=== PATIENT | male | born 1945 | race Caucasian/White ===

== ENCOUNTER → 2017-02-16 | Outpatient (CLI) | payer MEDICARE, OTHER ==
[~2017-02-16] MED LIST: ACIPHEX20 MG; ACIPHEX20 MG PO; ALBUTEROL17 GM NEB; ALLERGY RELIE15.8 ML; CELEBREX; CYANOCOBALAM1000 MCG PO; CYMBALTA20 MG PO; DIOVAN; FISH OIL 1,2001 EAC4 PO; FLOVENT HFA10.6 G1 INH; FLOVENT HFA12 G1 INH; FLOVENT HFA12 GM; FLOVENT HFA12 GM INH; FOLIC ACID PO; GENSING; GLUCOPHAGE XR500 MG; GLUCOTROL PO; LODINE; LODINE PO; LORTAB 7.5-5001 TAB; LOVENOX; METFORMIN; MICROLACTIN; NEURONTIN100 MG PO; PAXIL PO; PERCOCET 51 UDTAB 5/ PO; PERCOCET7.5; PROAIR HFA8.5 GM INH; PROBENECID/COLC1 TAB PO; RED YEAST RICE; SIMVASTATIN40 MG PO; VALSARTAN-HCTZ1 EAC1 PO; ZYRTEC; ZYRTEC10 M1 PO
--- NOTE | ~2017-02-16 | US6 ---
[facility] A Service of [facility] RADIOLOGY TEXT RESULTS PATIENT: WILLIAMS SILVA LOCATION: [facility] [[email or web address] : 49 UNIT #: [id number] AGE: [address]: Prasanna Lin MD SEX: M ORDER DR: [id number] [address] [address] [id number] O MR#: [id number] Acc #: [id number] NAME: WILLIAMS SILVA : 1945 SEX: M STUDY DATE/TIME: 02/16/2017 9:40 UNIT: SGUS ROOM: STUDY DESCRIPTION: US Abdominal Limited Attending Physician: Prasanna Lin M.D. Referring Physician: Prasanna Lin M.D. Ordering Physician: Prasanna Lin M.D. Primary Care Physician: Prasanna Lin M.D. MEDICAL IMAGING REPORT This report is preliminary unless electronic signature is present. EXAM Right upper quadrant ultrasound, 02/16/2017. HISTORY Abnormally elevated liver enzymes for 5 days. FINDINGS The liver demonstrates an increase in echotexture with attenuation of the ultrasound beam characteristic of fatty infiltration. No cystic or solid mass lesions were seen in the liver. The intra and extrahepatic bile ducts are not dilated. The gallbladder is normal with no evidence of cholelithiasis, wall thickening, or pericholecystic fluid. The common duct measures 3 mm. The pancreas is obscured by bowel gas. The right kidney contains a 4 cm cyst. The right kidney measures 10 cm in greatest diameter and demonstrates no evidence of hydronephrosis. IMPRESSION 1. Mild fatty infiltration of the liver. 2. Normal gallbladder. 3. Poor visualization of the pancreas due to overlying bowel gas. 4. Right renal cyst. Dictated by... Pedro Fung M.D. THIS IS AN ELECTRONICALLY VERIFIED REPORT Pedro Fung M.D. at 02/17/2017 2:16 PM ROSARIO/camelia TD: 02/16/2017 22:57 [facility] A Service of [facility] RADIOLOGY TEXT RESULTS PATIENT: WILLIAMS SILVA LOCATION: [facility] [[email or web address] : 49 UNIT #: [id number] AGE: [address]: Prasanna Lin MD SEX: M ORDER DR: JOB #: [id number] MEDICAL IMAGING REPORT Page 1 of 1
== END | disposition home or self-care (01) ==
LOC: SGUS 09:26
DX: R79.89 Other specified abnormal findings of blood chemistry (principal); K76.0 Fatty (change of) liver, not elsewhere classified; N28.1 Cyst of kidney, acquired
CPT/HCPCS: 76705